=== PATIENT | female | born 1995 | race Caucasian/White ===

== ENCOUNTER 2016-12-06 06:51 | Day surgery (SDC) | payer OTHER ==
[2016-12-05 11:27] VITALS: BMI 22.7
--- NOTE | 2016-12-05 19:21 | PREOP ---
DATE OF ADMISSION: 12/06/2016 DATE OF SURGERY: 12/06/2016 ADMISSION DIAGNOSIS: Adenotonsillar hypertrophy with upper airway obstruction and mild obstructive sleep apnea. HISTORY OF PRESENT ILLNESS: This 21-year-old female has had enlarged tonsils and adenoids. She did have snoring and obstructed breathing. She has also had some upper throat symptoms and evidence of previous tonsil infections. She had mononucleosis while away at college and required numerous courses of antibiotics as well as oral steroids. Her tonsils have become larger and she has significant upper airway obstruction. She is now admitted for adenotonsillectomy. PAST MEDICAL HISTORY: Primary medical doctor is Xander Wall MD. She had previous surgery including ACL surgery in 2013 and wisdom tooth extraction. She has had general anesthesia without any reported problems except for some slight nausea. Bleeding history is negative. Family history is negative for bleeding or anesthesia problems. Her past history does include anxiety, depression, and ADD. She does not smoke. Medications include Wellbutrin XL 150 mg daily, Zoloft 200 mg daily, and Klonopin 0.5 mg p.r.n. There are no known drug allergies. EXAM: Patient is a well-developed female in no acute distress. Head is normal. Eyes clear. Ears are unremarkable. The nose has mild anterior congestion. The adenoids are enlarged 4+ with complete obstruction of the nasopharyngeal airway. The oral cavity is unremarkable. The oropharynx shows 3+ enlarged tonsils, greater on the right than the left, with significant visible obstruction of the oropharyngeal airway. Voice is hyponasal. Neck has no mass or nodes. DATA: Preoperative labs are pending. test is negative. Sleep study in the past demonstrates mild obstructive sleep apnea syndrome. IMPRESSION: Adenotonsillar hypertrophy, recurrent tonsillitis, obstructive sleep apnea syndrome. PLAN: Adenotonsillectomy under general anesthesia. INFORMED CONSENT: The patient understands the indications, alternatives, nature , risks and benefits of proposed surgery, potential complications including but not limited to anesthesia, bleeding, infection, voice change, nasal regurgitation, bad breath, neck stiffness, were discussed in detail. She understands and accepts these risks and wished to proceed with surgery. Questions are answered fully. WINDY SUAREZ M.D. [id number] MTDD
[2016-12-06] MEDS ORDERED: MIDAZOLAM HCL 2 MG/2 ML SINGLE DOSE VIAL ONE (07:46)
[2016-12-06] MEDS ORDERED: PROPOFOL 20 ML ONE (07:46)
[2016-12-06] MEDS ORDERED: ROCURONIUM BROMIDE 50 MG/5 ML VIAL ONE (07:46)
[2016-12-06] MEDS ORDERED: LIDOCAINE HCL/PF 2% SDV 5ML VIAL ONE (07:46)
--- NOTE | 2016-12-06 07:55 | HP ---
History & Physical Update - History History: No Change - Physical Physical: No Change - Assessment Assessment: No Change - Plan Plan: No Change
[2016-12-06] MEDS ORDERED: DEXAMETHASONE SOD PHOSPHATE 4 MG/1 ML VIAL ONE (08:15)
[2016-12-06] MEDS ORDERED: ACETAMINOPHEN INJECTION 100 ML IVPB ONE (08:20)
[2016-12-06] MEDS ORDERED: BUPIVACAINE HCL/PF 0.25% (2.5MG/ML) 10 ML VIAL ONE (08:22)
[2016-12-06] MEDS ORDERED: BUPIVACAINE HCL/PF 0.25% (2.5MG/ML) 10 ML VIAL IJ ONE (08:23)
[2016-12-06] MEDS ORDERED: ACETAMINOPHEN 1000 MG/100 ML VIAL (NON FORMULARY) IVPB ONE (08:24)
[2016-12-06] MEDS ORDERED: NEOSTIGMINE METHYLSULFATE 0.5 MG/ML - 10 ML MDV ONE (08:51)
[2016-12-06] MEDS ORDERED: GLYCOPYRROLATE 0.2 MG/1 ML VIAL ONE (08:51)
[2016-12-06] MEDS ORDERED: oxyCODONE HCL 5 MG TABLET PO PRN (09:26)
--- NOTE | 2016-12-06 09:26 | OP ---
Operative Note - Note: Operative Date: 12/06/16 Pre-Operative Diagnosis: adenotonsillar hypertrophy with obstruction, recurrent tonsillitis, obstructive sleep apnea syndrome Operation: adenotonsillectomy Findings: marked adenotonsillar hypertrophy with upper airway obstruction Implants: none Post-Operative Diagnosis: Same as Pre-op Surgeon: Derek Grover Anesthesiologist/ENGRAVER HAND [employer] METALS: Mauri Marina Anesthesia: General Specimens Removed: adenoids, right tonsil, left tonsil Estimated Blood Loss (mls): 40 Blood Volume Replaced (mls): 0 Operative Report Dictated: Yes
[2016-12-06] MEDS ORDERED: LACTATED RINGERS SOLUTION 1,000 ML IV SCH ×2 (09:30→09:45)
[2016-12-06] MEDS ORDERED: PROMETHAZINE HCL 25 MG/1 ML VIAL IVPUSH PRN (09:35)
[2016-12-06] MEDS ORDERED: ONDANSETRON 4 MG/2 ML VIAL IVPUSH PRN (09:35)
[2016-12-06 10:53] VITALS: TEMP 99.1
--- NOTE | 2016-12-06 11:08 | OP ---
DATE OF OPERATION: 12/06/2016 PREOPERATIVE DIAGNOSIS: Recurrent tonsillitis, adenotonsillar hypertrophy with upper airway obstruction, obstructive sleep apnea syndrome. POSTOPERATIVE DIAGNOSIS: Recurrent tonsillitis, adenotonsillar hypertrophy with upper airway obstruction, obstructive sleep apnea syndrome. PROCEDURE: Adenotonsillectomy. SURGEON: Windy Grover MD ANESTHESIOLOGIST: Mauri Marina MD ANESTHESIA: General via endotracheal tube. INDICATIONS: This 21-year-old female has had longstanding upper airway obstruction and known enlarged tonsils and adenoids. She has also developed recurrent tonsillitis requiring numerous courses of antibiotics. Examination demonstrates complete obstruction of the nasopharyngeal airway from 4+ enlarged adenoids. The tonsils were enlarged 3-4+ on the right and 2+ on the left. She is now brought to surgery for treatment. FINDINGS: Marked adenotonsillar hypertrophy with upper airway obstruction. DESCRIPTION OF PROCEDURE: Patient was brought to the operating room and placed on the operating table in supine position. General endotracheal anesthesia was induced to a satisfactory level. She was prepped and draped in the usual fashion for surgery. The McIvor mouth gag with the ring blade was inserted. The oropharynx was exposed. Marked adenotonsillar hypertrophy was observed. The soft palate and uvula were normal, and there was no evidence of submucous cleft palate. The hypopharynx was packed. Marcaine 0.25% plain was infiltrated in the peritonsillar regions. Adenoidectomy was performed with the adenoid curettes until all palpable adenoid tissue was removed. There was significant hypertrophy. Nasopharynx was then packed with sponges. The right tonsil was retracted medially. The anterior pillar was incised, and the peritonsillar plane entered. Coblation dissection upon the capsule of the tonsil allowed removed of the tonsil from its surrounding tissue. Hemostasis was achieved with bipolar cauterization. This tonsil was very, very large. The left tonsil was then retracted medially. The anterior pillar was incised, and the peritonsillar plane entered. Coblation dissection upon the capsule of the tonsil allowed removed of the tonsil from its surrounding tissue. Again, excellent hemostasis was achieved with bipolar cauterization. After ensuring tonsillar hemostasis, attention was turned towards the nasopharynx. The nasopharyngeal sponges were removed. The soft palate was retracted by passing two red rubber catheters under indirect vision. Electrocauterization was performed to achieve hemostasis. After achieving hemostasis, the nasal cavities and nasopharynx were irrigated with saline, and pharynx was suctioned dry. Because of the size of the tonsils, 3-0 Vicryl sutures were used to approximate the anterior and posterior tonsillar pillars bilaterally. The hypopharyngeal pack was removed. The stump was suctioned of a moderate amount of lightly bilious fluid without blood. Patient tolerated the procedure well. She was then awakened from general anesthesia and transferred to PACU in stable condition. ESTIMATED BLOOD LOSS: 40 mL She received Crystalloid during the procedure. SPECIMENS: Include adenoid tissue, right tonsil and left tonsil, which were sent to Pathology for routine studies. COMPLICATIONS: There were no complications. WINDY GROVER M.D. [id number]
[2016-12-06 14:04] VITALS: BP 127/72; PULSE 94
--- NOTE | 2016-12-07 13:42 | PATH ---
Surgical Pathology Report Patient Name: CODY ERICKSON [facility] [place]. Rec. #: [id number] /Age/Gender: 1995 (Age: 21) / F Account: [id number] Location: AMBULATORY SURG Taken: 12/06/2016 Received: 12/06/2016 Reported: 12/07/2016 Physicians: Derek Grover M.D. Specimen(s) Received A: ADENOIDS B: RIGHT TONSIL C: LEFT TONSIL Clinical History Hypertrophic tonsils Final Diagnosis A. 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 B. 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 C. TONSIL, LEFT, TONSILLECTOMY: BENIGN TONSIL WITH REACTIVE FOLLICULAR LYMPHOID HYPERPLASIA. Electronically Signed Sergio Lara M.D. Gross Description A. Received in formalin labeled "adenoid tissue" is a 2.8 x 2.5 x 1.5 cm portion of pink-marx, lobulated soft tissue, consistent with adenoids. No discrete lesions are identified. A order entry representative section is submitted in one cassette. B. Received in formalin labeled "right tonsil" is a 3.8 x 2.2 x 1.6 cm pink-marx, ovoid portion of soft tissue, consistent with a tonsil. The outer surface is pink-marx, convoluted and varies from smooth to cauterized. Sectioning reveals focal yellow granules. The tonsillar parenchyma is homogeneous marx-pink and smooth with cryptic architecture. No discrete masses are identified. Client Services Associate sections are submitted in one cassette. C. Received in formalin labeled "left tonsil" is a 4.0 x 1.7 x 1.5 cm pink-marx, ovoid portion of soft tissue, consistent with a tonsil. The outer surface is pink-marx, convoluted and varies from smooth to cauterized. Sectioning reveals homogeneous pink-marx, smooth parenchyma with cryptic architecture. No discrete masses are identified. A order entry representative section is submitted in one cassette. DL/12/06/2016 saudi/12/06/2016
== END 2016-12-06 13:30 | disposition home or self-care (01) ==
LOC: JASUSAT 06:51
PROVIDERS: ATTEND Otolaryngology
PROC: 0CTQXZZ Resection of Adenoids, External Approach (ICD-10-PCS; 2016-12-06)
PROC: 0CTPXZZ Resection of Tonsils, External Approach (ICD-10-PCS; principal; 2016-12-06 08:00)
DX: J03.91 Acute recurrent tonsillitis, unspecified (principal); G47.33 Obstructive sleep apnea (adult) (pediatric)
CPT/HCPCS: 84703; 88304-TC; 94760